=== PATIENT | male | born 1945 | race Caucasian/White ===

== ENCOUNTER 2016-08-11 08:30 | Day surgery (SDC) | payer MEDICARE, BC ==
[2016-08-05 13:11] VITALS: BMI 31.3
[~2016-08-11 08:30] MED LIST: LACTATED RINGERS 1,000 ML IV SCH
[2016-08-11 09:32] VITALS: TEMP 97.1
[2016-08-11] MEDS ORDERED: LIDOCAINE 1% 20 ML VIAL (10MG/ML) FOR IV START INTRADERMA ONE (09:37)
[2016-08-11] MEDS ORDERED: PROPOFOL 10 MG/ML 20 ML VIAL IV ONE (09:41)
[2016-08-11 10:11] VITALS: RESP 16
--- NOTE | 2016-08-11 10:16 | P.PCN ---
Date of Procedure: 08/11/16 Procedure(s) Performed: Procedure: 1. Esophagogastroduodenoscopy and biopsy. 2. Total colonoscopy. Preoperative diagnosis: History of Donahue's esophagus and screening for colon cancer. Postoperative diagnosis: 1. Donahue's esophagus, multiple biopsies obtained. 2. Diverticulosis of the colon. Preparation: HalfLytely prep. Sedation: Was provided by anesthesia. Brief clinical history: The patient is a 71-year-old male with history of Donahue's esophagus. His last exam was in May 2014. The patient is also scheduled for screening for colon neoplasia. His last colonoscopy was in 2006. At this time, he has no abdominal complaints, bleeding or anemia. Procedure: With the patient on his left lateral decubitus position and after informed consent and adequate sedation, I passed the Olympus-GIF 160 video upper endoscope through the cricopharyngeus down the esophagus. The rosanna-GE junction was around 34-35 cm from the incisors and the tubular esophagus continued for another 4 cm or so as previously described. There was a sliding hiatal hernia 2-3 cm in size. The esophagus did not show any erosions, ulcers or strictures. The endoscope was then passed into the stomach which was insufflated with air and inspected in detail including the retroflex view in the cardia. Finally, the endoscope was passed through the pylorus into the duodenum. Stomach and duodenum did not show any obvious abnormalities. I obtained multiple biopsies from the Donahue's segment then the endoscope was withdrawn and I proceeded with the colonoscopy. Perianal area did not show any fissures or fistulas. There were no masses felt on digital rectal examination. The Olympus CFQ 160L video colonoscope was then inserted in the rectum in the usual fashion and advanced to the cecum. There were multiple diverticular orifices seen scattered mostly on the left side with several on the right side and around the hepatic flexure with no evidence of acute diverticulitis or strictures. The mucosa appeared healthy. No polyps or tumors were seen. I retroflexed endoscope in the rectum before the endoscope was withdrawn. The patient tolerated the procedure well. Plan: The patient was reassured. Will await biopsy results. Discussed dietary measures. Further plans based on his course and biopsy results. I anticipate repeating his upper endoscopy in 2-3 years. He will follow up with you as planned.
[2016-08-11 10:23] VITALS: BP 121/85; PULSE 72
== END 2016-08-11 10:58 | disposition home or self-care (01) ==
LOC: ORWHC2ENDO 08:30
DX: Z12.11 Encounter for screening for malignant neoplasm of colon (principal); K22.70 Barrett's esophagus without dysplasia; K57.30 Diverticulosis of large intestine without perforation or abscess without bleeding; K44.9 Diaphragmatic hernia without obstruction or gangrene; N40.0 Benign prostatic hyperplasia without lower urinary tract symptoms; F32.9 Major depressive disorder, single episode, unspecified; Z79.899 Other long term (current) drug therapy
CPT/HCPCS: 88305; 43239; J2704; G0121; 45378; 99153

== ENCOUNTER 2018-05-26 09:11 | Day surgery (SDC) | payer MEDICARE, BC ==
[2018-05-23 15:55] VITALS: BMI 31.1
[~2018-05-26 09:11] MED LIST changes: +LIDOCAINE 1% 20 ML VIAL (10MG/ML) FOR IV START INTRADERMA PRN; +MIDAZOLAM 2 MG/2 ML VIAL IV PRN
[2018-05-26 09:41] VITALS: TEMP 97.8
[2018-05-26] MEDS ORDERED: LIDOCAINE 1% INJ 10MG/ML (20 ML MDV) ONE (10:21)
[2018-05-26] MEDS ORDERED: PROPOFOL 10 MG/ML 20 ML VIAL IV ONE (10:21)
[2018-05-26 10:44] VITALS: RESP 16
--- NOTE | 2018-05-26 10:52 | P.PCN ---
Date of Procedure: 05/26/18 Procedure(s) Performed: Procedure: Esophagogastroduodenoscopy and biopsy. Preoperative diagnosis: Abdominal pain and history of Donahue's esophagus. Postoperative diagnosis: 1. Hiatal hernia and Donahue's esophagus. 2. Antral gastritis. 3. Multiple biopsies obtained from the duodenum, antrum and esophagus. Preparation and sedation: Was provided by anesthesia. Brief clinical history: The patient is a 73-year-old male with history of Donahue's esophagus. His last upper endoscopy and colonoscopy was in July 2016. The patient was due for a follow-up upper endoscopy in July of 2018. He is scheduled at this time because of nonspecific upper abdominal discomfort and nausea and poor appetite. He had dark stools for several days a week or 2 prior. This evaluation is to assess for peptic ulcer disease or other pathology. Procedure: With the patient on his left lateral decubitus position and after informed consent and adequate sedation, I passed the Olympus-GIF 160 video upper endoscope through the cricopharyngeus down the esophagus. The rosanna-GE junction was irregular and started around 34 cm from the incisors and the tubular esophagus continued for another 4 or 5 cm. There is a 2 cm sliding hiatal hernia. The esophagus did not show any erosions, ulcers or strictures. The endoscope was then passed into the stomach which was insufflated with air and inspected in detail including the retroflex view in the cardia. There was some mottling and erythema in the antrum but no ulcers or erosions. Pyloric channel, duodenal bulb, post bulbar area and descending duodenum appeared within normal limits. Because of his symptoms, I obtained biopsies from the duodenum, antrum and Donahue's esophagus then the endoscope was withdrawn. The patient tolerated the procedure well. Plan: The patient was reassured. Will await biopsy results. I anticipate repeating his upper endoscopy in 2-3 years. As far as his symptoms are concerned, consideration can be given for further evaluation including imaging studies if he continues to be symptomatic and especially if there is weight loss and other manifestations of organic disease. I will see him in follow-up in the office and keep you updated on his progress. He will follow up with you as planned.
[2018-05-26 10:58] VITALS: BP 124/83; PULSE 70
== END 2018-05-26 11:23 | disposition home or self-care (01) ==
LOC: ORWHC2ENDO 09:11
DX: K29.50 Unspecified chronic gastritis without bleeding (principal); K22.70 Barrett's esophagus without dysplasia; K44.9 Diaphragmatic hernia without obstruction or gangrene; K21.9 Gastro-esophageal reflux disease without esophagitis; N40.0 Benign prostatic hyperplasia without lower urinary tract symptoms; F32.9 Major depressive disorder, single episode, unspecified; Z79.899 Other long term (current) drug therapy
CPT/HCPCS: 88305; 43239; J2001; J2704

== ENCOUNTER → 2018-06-10 | Outpatient (CLI) | payer MEDICARE, BC ==
--- NOTE | 2018-06-10 09:28 | CT ---
EXAMINATION TYPE: CT abdomen wo con DATE OF EXAM: 06/10/2018 COMPARISON: None HISTORY: distention, gas, nausea CT DLP: 602.7 mGycm Automated exposure control for dose reduction was used. TECHNIQUE: Helical acquisition of images was performed from the lung bases through the top of iliac crest to include entire abdomen. CONTRAST: Performed without Oral Contrast and without IV contrast. FINDINGS: LUNG BASES: Coronary artery calcification noted.. Subpleural ill-defined density right lower lobe lik kenia post LIVER/GB: No significant abnormality is appreciated. PANCREAS: No significant abnormality is seen. SPLEEN: No significant abnormality is seen. ADRENALS: No significant abnormality is seen. KIDNEYS: No nephrolithiasis or hydronephrosis. There is a hyperdense lesion involving the upper pole the left kidney measuring 1.1 cm. Ultrasound recommended to assess for cystic or solid lesion. BOWEL: No significant abnormality is seen. LYMPH NODES: No significant abnormality is appreciated. 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 There is m ultilevel hypertrophic and degenerative disc disease. Multilevel vertebral body hemangioma noted. Fac et arthropathy noted.. OTHER: Visualized aorta mild atherosclerotic change vasculature. Fat-containing small periumbilical h ernia. IMPRESSION: 1. HYPERDENSE LESION 1.1 CM UPPER POLE LEFT KIDNEY MAY REPRESENT HEMORRHAGIC CYST. ULTRASOUND RECOMME NDED TO EXCLUDE SOLID LESION. 2. VERY MILD STRANDING OF THE MESENTERY WHICH CAN BE SEEN WITH A MILD MESENTERITIS OR PANNICULITIS. C ORRELATE CLINICALLY.
== END | disposition home or self-care (01) ==
LOC: RADCTMAIN 06:39
PROVIDERS: ATTEND Family Medicine
DX: N28.9 Disorder of kidney and ureter, unspecified (principal)
CPT/HCPCS: 74150

== ENCOUNTER → 2018-06-24 | Outpatient (CLI) | payer MEDICARE, BC ==
--- NOTE | 2018-06-24 15:53 | US ---
EXAMINATION TYPE: US kidneys/renal and bladder DATE OF EXAM: 06/24/2018 COMPARISON: NONE CLINICAL HISTORY: N28.9 Disorder of kidney and ureter, unspecified. Left kidney lesion EXAM MEASUREMENTS: Right Kidney: 10.8 x 5.2 x 5.0 cm Left Kidney: 11.4 x 5.6 x 5.0 cm Right Kidney: calcification mid = 0.5cm Left Kidney: cystic areas noted, upper pole = 1.4 x 1.2 x 1.3cm and mid = 1.3 x 1.0 x 1.1cm Bladder: nodular area posterior wall, possibly due to protrusion from prostate. Follow-up is recommen ded Bilateral Jets seen: yes IMPRESSION: 1. Echogenic foci within the right renal cortex without shadowing may be a small calcification. 2. Simple appearing cyst within the cortex upper pole left kidney. 3. Prostate appears prominent.
== END | disposition home or self-care (01) ==
LOC: RADUSWWP 09:23
PROVIDERS: ATTEND Family Medicine
DX: N28.1 Cyst of kidney, acquired (principal)
CPT/HCPCS: 76770

== ENCOUNTER 2019-08-23 10:45 | Day surgery (SDC) | payer MEDICARE, BC ==
[2019-08-22 09:45] VITALS: BMI 31.8
[~2019-08-23 10:45] MED LIST changes: -MIDAZOLAM 2 MG/2 ML VIAL IV PRN
[2019-08-23 11:16] VITALS: TEMP 97.8
[2019-08-23] MEDS ORDERED: LIDOCAINE 1% INJ 10MG/ML (20 ML MDV) ONE (12:22)
[2019-08-23] MEDS ORDERED: PROPOFOL 10 MG/ML 20 ML VIAL IV ONE (12:22)
--- NOTE | 2019-08-23 12:31 | P.PCN ---
Date of Procedure: 08/23/19 Procedure(s) Performed: BRIEF HISTORY: Patient is a 74-year-old, pleasant, male scheduled for an upper endoscopy as a part of surveillance of Donahue's esophagus. He has also history of GERD of several years duration.. PROCEDURE PERFORMED: Esophagogastroduodenoscopy with biopsy. PREOPERATIVE DIAGNOSIS: GERD/Donahue's esophagus. IV sedation per anesthesia. PROCEDURE: After informed consent was obtained, the patient was brought into the endoscopy unit. IV sedation was administered by Anesthesia under continuous monitoring. Initially the Olympus GIF-140 video endoscope was inserted into the mouth. Esophagus intubated without any difficulty. It was gradually advanced into the stomach and duodenum and carefully examined. The bulb and the second part of the duodenum appeared normal. The scope at this time was withdrawn to the stomach, adequately insufflated with air, and upon careful examination, mucosa of the antrum, body, cardia and the fundus appeared normal. Gastric polyps were noted in the body the stomach that was biopsied. The scope was then withdrawn into the esophagus. Small hiatal hernia noted. The GE junction was located at 37 cm from the incisors. There was a segment of Donahue's esophagus extending from 35-37 cm from the incisors and multiple biopsies were done from this area. The rest of the esophagus appeared normal. There were no erosions or ulcerations seen and the patient tolerated the procedure well. IMPRESSION: 1. Donahue's esophagus extending from 35-37 cm from the incisors status post biopsy to rule out dysplasia. 2.. Small hiatal hernia and small gastric polyps. RECOMMENDATIONS: The findings of this examination were discussed with the patient as well as esophagitis. He was advised to follow with the biopsy results. If the biopsy confirms the presence of Donahue's esophagus he can have a repeat upper endoscopy in 2-3 years. He'll continue with current medications and follow antireflux measures.
[2019-08-23 12:52] VITALS: BP 128/83; PULSE 75; RESP 16
== END 2019-08-23 13:11 | disposition home or self-care (01) ==
LOC: ORWHC2ENDO 10:45
PROVIDERS: ATTEND Internal Medicine Gastroenterology
DX: K22.70 Barrett's esophagus without dysplasia (principal); K31.7 Polyp of stomach and duodenum; K44.9 Diaphragmatic hernia without obstruction or gangrene; K21.9 Gastro-esophageal reflux disease without esophagitis; N40.0 Benign prostatic hyperplasia without lower urinary tract symptoms; F32.9 Major depressive disorder, single episode, unspecified; Z79.899 Other long term (current) drug therapy
CPT/HCPCS: 88305; 43239; J2001; J2704

== ENCOUNTER → 2019-11-24 | Outpatient (CLI) | payer MEDICARE, BC ==
--- NOTE | 2019-11-24 16:17 | MR ---
EXAMINATION TYPE: MR brain wo con DATE OF EXAM: 11/24/2019 COMPARISON: None HISTORY: Vertigo X 1 Week CONTRAST: Performed utilizing 0 mL intravenous Gadavist gadolinium contrast. TECHNIQUE: Multiplanar, multiecho imaging on a 3.0 Nan magnet is performed through the brain. Stud y is performed within 24 hours of arrival to the hospital. The craniovertebral junction is normal. The pituitary is normal. Diffusion-weighted imaging is performed. No abnormal hyperintensity is present to suggest an acute i ntracranial infarct or acute ischemic change. There are couple of punctate subcortical white matter changes. Couple of left periventricular white m atter changes are also noted. The right centrum semiovale hyperintensity is present. Findings are non specific but can be related to microvascular ischemic change. Ventricles and sulci are slightly prominent for the patient age. IMPRESSIONS: 1. Chronic appearing mild periventricular white matter ischemic changes with mild age-related atrophy
== END | disposition home or self-care (01) ==
LOC: RADMRIMAIN 14:49
PROVIDERS: ATTEND Family Medicine
DX: R90.82 White matter disease, unspecified (principal); R54 Age-related physical debility
CPT/HCPCS: 70551

== ENCOUNTER 2022-07-03 07:35 | Day surgery (SDC) | payer MEDICARE, BC ==
[2022-07-01 14:49] VITALS: BMI 31.3
[~2022-07-03 07:35] MED LIST changes: +LIDOCAINE 1% (10MG/ML) FOR IV START INTRADERMA PRN; -LIDOCAINE 1% 20 ML VIAL (10MG/ML) FOR IV START INTRADERMA PRN
[2022-07-03 08:51] VITALS: TEMP 97
[2022-07-03] MEDS ORDERED: PROPOFOL 10 MG/ML 20 ML VIAL IV ONE (09:53)
[2022-07-03] MEDS ORDERED: LIDOCAINE 2% INJ 20 MG/ML (2 ML VIAL) ONE (09:53)
--- NOTE | 2022-07-03 10:05 | P.PCN ---
Date of Procedure: 07/03/22 Procedure(s) Performed: BRIEF HISTORY: Patient is a 77-year-old, pleasant, white male scheduled for an upper endoscopy as a part of evaluation of long-standing history of GERD and Donahue's esophagus. His last EGD was 5 years ago. . PROCEDURE PERFORMED: Esophagogastroduodenoscopy with biopsy. PREOPERATIVE DIAGNOSIS: History of GERD and Donahue's esophagus. IV sedation per anesthesia. PROCEDURE: After informed consent was obtained, the patient was brought into the endoscopy unit. IV sedation was administered by Anesthesia under continuous monitoring. Initially the Olympus GIF-140 video endoscope was inserted into the mouth. Esophagus intubated without any difficulty. It was gradually advanced into the stomach and duodenum and carefully examined. The bulb and the second part of the duodenum appeared normal. The scope at this time was withdrawn to the stomach, adequately insufflated with air, and upon careful examination, mucosa of the antrum, body, cardia and the fundus appeared normal. Small gastric polyps noted in the body the stomach which were biopsied. The scope was then withdrawn into the esophagus. Small hiatal hernia noted. The GE junction was located at 38 cm from the incisors. There was a long segment of Donahue's esophagus extending from 35-38 cm from the incisors with normal-appearing mucosa and multiple biopsies were done from this area to rule out dysplasia. The rest of the esophagus appeared normal. There were no erosions or ulcerations seen and the patient tolerated the procedure well. IMPRESSION: 1. Long segment Donahue's esophagus extending from 35-38 cm from the incisors status post multiple biopsies. 2. Small hiatal hernia 3. Multiple gastric polyps. RECOMMENDATIONS: The findings of this examination were discussed with the patient as well as his family. He was advised to follow with the biopsy results. If the biopsy confirms the presence of Donahue's esophagus he can have a repeat upper endoscopy in 3 years. In the meantime advised to continue on omeprazole 20 mg daily and follow antireflux measures..
[2022-07-03 10:09] VITALS: RESP 16
[2022-07-03 10:25] VITALS: BP 135/92; PULSE 68
== END 2022-07-03 11:01 | disposition home or self-care (01) ==
LOC: ORWHC2ENDO 07:35
PROVIDERS: ATTEND Internal Medicine Gastroenterology
DX: K31.7 Polyp of stomach and duodenum (principal); K44.9 Diaphragmatic hernia without obstruction or gangrene; K21.9 Gastro-esophageal reflux disease without esophagitis; N40.0 Benign prostatic hyperplasia without lower urinary tract symptoms; Z79.899 Other long term (current) drug therapy
CPT/HCPCS: 88305; 88312; 43239; J2704; J2001

== ENCOUNTER 2022-12-09 09:51 | Day surgery (SDC) | payer MEDICARE, BC ==
[2022-12-09] MEDS ORDERED: LACTATED RINGERS 1,000 ML IV SCH (10:50)
[2022-12-09] MEDS ORDERED: LIDOCAINE 1% (10MG/ML) FOR IV START INTRADERMA PRN (10:50)
[2022-12-09 11:00] VITALS: TEMP 97.2
[2022-12-09] MEDS ORDERED: PROPOFOL 10 MG/ML 20 ML VIAL IV ONE (11:48)
[2022-12-09] MEDS ORDERED: LIDOCAINE 2% INJ 20 MG/ML (2 ML VIAL) ONE (11:48)
--- NOTE | 2022-12-09 11:58 | P.PCN ---
Date of Procedure: 12/09/22 Procedure(s) Performed: BRIEF HISTORY: Patient is a 77-year-old, pleasant, male scheduled for an upper endoscopy as a part of evaluation of long-standing history of GERD/Donahue's esophagus. His last upper endoscopy was in 2 separate 2021 and was noted to have long-standing Donahue's esophagus and biopsies revealed indefinite for dysplasia. Since then he has been on omeprazole 20 mg twice daily and is scheduled for repeat upper endoscopy in 6 months PROCEDURE PERFORMED: Esophagogastroduodenoscopy with biopsy. PREOPERATIVE DIAGNOSIS: Donahue's esophagus/indefinite for dysplasia on biopsy. IV sedation per anesthesia. PROCEDURE: After informed consent was obtained, the patient was brought into the endoscopy unit. IV sedation was administered by Anesthesia under continuous monitoring. Initially the Olympus GIF-140 video endoscope was inserted into the mouth. Esophagus intubated without any difficulty. It was gradually advanced into the stomach and duodenum and carefully examined. The bulb and the second part of the duodenum appeared normal. The scope at this time was withdrawn to the stomach, adequately insufflated with air, and upon careful examination, mucosa of the antrum, body, cardia and the fundus appeared normal. The scope was then withdrawn into the esophagus. Small hiatal hernia noted. The GE junction was located at 39 cm from the incisors. Long segment of Donahue's esophagus extending from 36-39 cm from the incisors and multiple biopsies were done from this area. The rest of the esophagus appeared normal. There were no erosions or ulcerations seen and the patient tolerated the procedure well. IMPRESSION: 1. Small hiatal hernia. 2. Long Donahue's esophagus extending from 36-39 cm from the incisors status post multiple biopsies. RECOMMENDATIONS: The findings of this examination were discussed with the patient as well as his family to follow with the biopsy results. Based the biopsy results will plan a repeat surveillance upper endoscopy.
[2022-12-09] MEDS ORDERED: IV FLUID CONTINUATION 900 ML IV ONE (12:01)
[2022-12-09 12:26] VITALS: BP 121/83; PULSE 62; RESP 16
== END 2022-12-09 12:39 | disposition home or self-care (01) ==
LOC: ORWHC2ENDO 09:51
PROVIDERS: ATTEND Internal Medicine Gastroenterology
DX: K21.9 Gastro-esophageal reflux disease without esophagitis (principal); K31.A0 Gastric intestinal metaplasia, unspecified; K22.70 Barrett's esophagus without dysplasia; K44.9 Diaphragmatic hernia without obstruction or gangrene; N40.0 Benign prostatic hyperplasia without lower urinary tract symptoms; Z79.899 Other long term (current) drug therapy
CPT/HCPCS: 88305; 43239; J2704; J2001